=== PATIENT | female | born 1955 | race Caucasian/White ===

== ENCOUNTER 2022-03-18 10:34 | Outpatient (CLI) | payer MEDICARE, BC, SELFPAY ==
[2022-03-18 13:33] LABS: Hematocrit 41.9 % (33.0-51.0); Hemoglobin* 14.4 gm/dL (12.0-16.0); Mean Corpuscular HGB Conc 34 gm/dL (32-36); Mean Corpuscular Hemoglobin 32 pg (26-34); Mean Corpuscular Volume 93 fL (80-100); Platelet Count* 335 K/uL (140-440); Red Blood Count 4.51 m/uL (4.00-5.20); White Blood Count* 7.75 K/uL (4.50-11.00)
[2022-03-18 13:36] LABS: Slide Review Reflex No
[2022-03-18 14:01] LABS: Chloride* 104 mmol/L (96-114); Potassium* 4.8 mmol/L (3.6-5.1); Sodium* 138 mmol/L (135-149)
[2022-03-18 14:04] LABS: Blood Urea Nitrogen* 16 mg/dL (7-30); Carbon Dioxide* 29 mmol/L (20-32); Cholesterol* 274 mg/dL (90-199); Creatinine* 0.9 mg/dL (0.5-1.5); Estimated Glomerular Filt Rate 71 ml/min
[2022-03-18 14:05] LABS: Calcium* 9.7 mg/dL (8.4-10.6); Glucose* 91 mg/dL (60-115); HDL Cholesterol* 59 mg/dL (>=50); LDL Cholesterol Calculated 159 mg/dL (<100); Triglycerides* 281 mg/dL (40-149)
== END 2022-03-18 10:35 | disposition home or self-care (01) ==
PROVIDERS: PCP Family Medicine; Visit Provider Family Medicine
DX: Z00.00 Encounter for general adult medical examination without abnormal findings (principal); E03.9 Hypothyroidism, unspecified; E78.5 Hyperlipidemia, unspecified; I10 Essential (primary) hypertension
CPT/HCPCS: 80048; 80061; 84443; 85027

== ENCOUNTER 2022-04-21 08:49 | Outpatient (CLI) | payer MEDICARE, BC, SELFPAY ==
--- OUTSIDE RECORDS SUMMARY | 2022-04-21 08:52 | XMS_ITS | Clinical Summary ---
:1955 Author Organization [facility] [place] [address] Care Team Providers Name Role Phone Shalom Hargrove MD Primary Care Provider [phone] Allergies Active Allergy Reactions Severity Noted Date Comments Formaldehyde Rash 10/18/2018 Medications Medication Sig Dispensed Refills Start Date End Date Status aspirin chewable 81 Take 1 tablet by 0 03/26/2016 Active mg chewable mouth once daily tabletIndications: with a meal. Routine general medical examination at a health care facility calcium carbonate Take 1 tablet by 0 03/26/2016 Active (CALTRATE) 600 mg mouth 2 times (1,500 mg) daily with meals. tabletIndications: Routine general medical examination at a health care facility [id number] 1 APPLICATION 0 02/04/2017 Active xamethasone TOPICALLY TID TO (MAXITROL) ophthalmic EYELID WOUNDS FOR ointment 1 WEEK ergocalciferol Take 1 capsule by 12 capsule 1 03/31/2017 Active (VITAMIN D2) 50,000 mouth once weekly. unit capsuleIndications: Vitamin D deficiency Active Problems Problem Noted Date Melanoma 04/17/2016 Personal history of colonic polyps 03/19/2016 Vitamin D deficiency 02/24/2012 Tobacco abuse 06/12/2009 Hyperlipidemia 12/10/2007 Immunizations Name Administration Dates Next Due Hepatitis A (Adult) 12/18/1999, 05/15/1999 Hepatitis B (Adult) 12/18/1999, 07/01/1999, 05/15/1999 Influenza, IIV3 (Age >=3 years) 05/25/2009 Td (Age >=7 Years) 05/15/1999 Tdap 06/12/2009 Zoster (Zostavax-ZVL, live) 02/03/2017 Family History Medical History Relation Name Comments Hypertension Brother 2 Heart Disease Father [place] age 54 Hypertension Father Stroke Father Cancer Mother melanoma Cancer-breast Paternal Grandmother PGGM Cancer Sister 2 basal/squamous c ells Cancer Sister 3 melanoma Cancer-colon Sister 3 benign tumor rem dwight Relation Name Status Comments Brother 1 Alive Brother 2 Father (Age 53) Mother Alive Paternal Grandmother Sister 1 Alive Sister 2 Alive Sister 3 Alive Social History Tobacco Use Types Packs/Day Years Used Date Current Every Day Smoker Cigarettes 0.5 Soham t: 02/16/2016 Smokeless Tobacco: Never Used Tobacco Cessation: Counseling Given: Yes Alcohol Use Standard Drinks/Week Comments Yes 0 (1 standard drink = 0.6 oz pure alcoho l) occasional Alcohol Habits Answer Date Recorded How often do you have a drink containing alcohol? Not asked How many drinks containing alcohol do you have on a typical Not asked day when you are drinking? How often do you have six or more drinks on one occasion? No t asked Comment: occasional 05/15/2009 Sex Assigned at Date Recorded Not on file Obstetrics History Para Term AB IAB SAB Ectopic Multiple Living Live Births 4 3 3 1 1 3 4 Date Outcome GA Total Labor/2nd/3rd Weight Sex Delivery Anes PTL Kim A 1 A5 Name Clin Labor 08/24 Term 40w 3.09 kg M Vag Phoebe /1972 0d (6 lb ng 13 oz) Comments: Adopted Out 10/11/1981 SAB 8w0d [facility] Delivery Location: [facility] 11/12/1982 Term 3.32 kg (7 lb 5 oz) F Vag-Forceps Living 8 9 [facility] Delivery Location: [facility] 01/29/1985 Term 40w0d 3.12 kg (6 lb 14 oz) Vag Li ving 8 9 [facility] Delivery Location: [facility] Last Filed Vital Signs Vital Sign Reading Time Taken Comments Blood Pressure 117/70 10/18/2018 4:00 AM UNDERWRITING DIRECTOR Pulse 70 10/18/2018 4:00 AM UNDERWRITING DIRECTOR Temperature 37.1 ??C (98.7 ??F) 10/18/2018 1:10 AM UNDERWRITING DIRECTOR Respiratory Rate 18 10/18/2018 12:11 AM UNDERWRITING DIRECTOR Oxygen Saturation 96% 10/18/2018 4:00 AM UNDERWRITING DIRECTOR Inhaled Oxygen Concentration - - Weight 72 kg (158 lb 11.2 oz) 10/18/2018 12:11 AM UNDERWRITING DIRECTOR Height 160 cm (5' 3) 10/18/2018 12:11 AM UNDERWRITING DIRECTOR Body Mass Index 28.11 10/18/2018 12:11 AM UNDERWRITING DIRECTOR Plan of Treatment Health Maintenance Due Date Last Done Comments COVID-19 vaccine series (#1) 06/27/1956 Hepatitis C screening for age 0512/25/1974 18-79 Pap test for age 21-65 02/15/2015 02/16/2012 (Completed out side of [facility]), 04/21/2006, 08/20/2004 Depression screening for age 12+ 02/04/2017 02/05/2016 Zoster (shingles) series for age 0803/31/2017 02/03/2017 50+ (2 of 3) BMI (ht and wt on same day) for 02/03/2018 02/03/2017, 0808/2015 age 18+ Mammogram for age 45-75 02/10/2018 02/10/2017, 02/08/2016, 02/16/2012, Additional history exists Tetanus booster 06/12/2019 06/12/2009, 05/15/1999 Colonoscopy through age 75 03/13/2021 03/13/2016, 6, 01/20/2008, Additional history exists DEXA/DXA scan for age 65+ 2021 02/19/2012 Pneumococcal series for age 65+ (1 2021 - PCV) Lipids for age 45-75 02/03/2022 02/03/2017, 02/05/2016, 02/19/2012, Additional history exists Influenza for age 65+ 04/24/2022 05/25/2009 Tdap Completed 06/12/2009 Results Not on filefrom Last 3 Months Insurance Payer Benefit Plan / Subscriber ID Effective Dates Phone Addre ss Type Group MEDICARE PART B MEDICARE PART B [id number] 2021-[facility] ATTN: CLAIMS - HB USE ONLY HB ONLY t [address] [place] [address] MEDICARE PART A MEDICARE PART A [id number] 2021-[employer] ATTN: CLAIMS - HB USE ONLY HB ONLY t [address] [place] [address] MEDICARE - PB MEDICARE PB [id number] 2021-[employer] ATTN : CLAIMS USE ONLY ONLY t [address] [place] [address] [place] [id number] 2021-Stan [address] [address] [place], [place] [id number] Care Teams Representative Government Relations Relationship Specialty Start Date End Date Shalom Hargrove MD PCP - General 04/21/061999 [place] [address]
--- NOTE | 2022-04-21 09:15 | CRLHL7_ITS ---
For Patients: As a result of the Century Cures Act, medical imaging exams and procedure reports are released immediately into your electronic medical record. You may view this report before your referring provider. If you have questions, please contact your health care provider. INDICATION: TIAs. TECHNIQUE: Brain MRI with contrast. The following sequences were obtained: Sagittal T1 weighted sequence. DWI and ADC mapping sequences. Axial FLAIR, GRE T2* and JT T2 weighted sequences. T1 weighted post-contrast sequences. Magnetic Resonance Angiography of the head and neck with and without contrast. The following sequences were obtained: 3D Time of Flight MRA sequence of the intracranial circulation. 3D Time of Flight and gadolinium bolus MRA sequences the neck with all measurements are based on NASCET criteria. Maximum Intensity Reconstructions are provided. 20 cc of Dotarem gadolinium based contrast agent was used. COMPARISON: None. FINDINGS: MRI Head: No acute infarction. No acute or chronic intracranial blood products. No mass or pathologic intracranial enhancement. Few small foci of FLAIR hyperintensity within the supratentorial white matter, typical for chronic microvascular ischemic change. No hydrocephalus or extra-axial collections. The pituitary gland, parasellar structures and optic chiasm are normal. 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 The orbital contents are normal. No calvarial or skull base marrow signal abnormality. No obstructive sinus disease. No extracranial soft tissue findings. MRA Head: No proximal large vessel occlusion. The anterior cerebral arteries are patent. Hypoplastic right A1 segment. The middle cerebral arteries are patent. The posterior cerebral arteries are patent. The intradural vertebral arteries and basilar artery are patent. The intracranial internal carotid arteries are patent. No aneurysm or high flow vascular malformation. MRA Neck: There is a 3 vessel configuration of the aortic arch. The brachiocephalic artery is patent. The proximal subclavian arteries are patent. The common carotid arteries are patent. The internal carotid arteries are patent. The cervical vertebral arteries are patent. No abnormal dilatation of the major cervical arteries. IMPRESSION: MRI Head: 1. No acute infarction or other acute intracranial pathology. 2. No mass or pathologic intracranial enhancement. 3. 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 4. Scattered chronic microvascular ischemic changes within the supratentorial white matter. MRA Head: 1. No proximal large vessel occlusion or flow-limiting stenosis involving the intracranial arterial circulation. MRA Neck: 1. No flow-limiting stenosis or evidence of dissection involving the cervical arterial circulation. Dictated by Ga Barrientos MD @ 04/21/2022 11:15:54 AM (Electronically Signed)
--- NOTE | 2022-04-21 10:15 | CRLHL7_ITS ---
For Patients: As a result of the Cures Act, medical imaging exams and procedure reports are released immediately into your electronic medical record. You may view this report before your referring provider. If you have questions, please contact your health care provider. Dictation for this exam included within the brain MRI report from the same date. Dictated by Ga Barrientos MD @ 04/21/2022 11:17:14 AM (Electronically Signed)
--- NOTE | 2022-04-21 10:15 | CRLHL7_ITS ---
For Patients: As a result of the Cures Act, medical imaging exams and procedure reports are released immediately into your electronic medical record. You may view this report before your referring provider. If you have questions, please contact your health care provider. Dictation for this exam included within the brain MRI report from the same date. Dictated by Ga Barrientos MD @ 04/21/2022 11:16:21 AM (Electronically Signed)
== END 2022-04-21 08:50 | disposition home or self-care (01) ==
LOC: MRI 08:50
PROVIDERS: PCP Family Medicine; Visit Provider Family Medicine
DX: G45.9 Transient cerebral ischemic attack, unspecified (principal); I63.9 Cerebral infarction, unspecified
CPT/HCPCS: 70544; 70549; 70553; A9575

== ENCOUNTER 2022-05-19 12:31 | Outpatient (CLI) | payer MEDICARE, BC, SELFPAY ==
--- OUTSIDE RECORDS SUMMARY | 2022-05-19 12:33 | XMS_ITS | Clinical Summary ---
:1955 Author Organization [employer] [facility] [employer] [place] [address] Care Team Providers Name Role Phone Shalom Hargrove MD Primary Care Provider [phone] Allergies Active Allergy Reactions Severity Noted [...] medical examination at a health care facility [id number] 1 APPLICATION 0 02/04/2017 Active xamethasone TOPICALLY [...] Comments Hypertension Brother 2 Heart Disease Father [place] age 54 Hypertension Father Stroke Father Cancer [...] oz) Comments: Adopted Out 10/11/1980 SAB 8w0d [facility] Delivery Location: [facility] 11/12/1982 Term 3.32 kg (7 lb 5 oz) F Vag-Forceps Living 8 9 [facility] [place] Delivery Location: [facility] 01/29/1985 Term 40w0d 3.12 kg (6 lb 14 oz) Vag Li ving 8 9 [facility] Delivery Location: [facility] Last Filed Vital Signs Vital Sign Reading Time Taken Comments Blood Pressure 117/70 10/18/2018 4:00 AM AUTOMATIC MOUNTER Pulse 70 10/18/2018 4:00 AM AUTOMATIC MOUNTER Temperature 37.1 ??C (98.7 ??F) 10/18/2018 1:10 AM AUTOMATIC MOUNTER Respiratory Rate 18 10/18/2018 12:11 AM AUTOMATIC MOUNTER Oxygen Saturation 96% 10/18/2018 4:00 AM AUTOMATIC MOUNTER Inhaled Oxygen Concentration - - Weight 72 kg (158 lb 11.2 oz) 10/18/2018 12:11 AM AUTOMATIC MOUNTER Height 160 cm (5' 3) 10/18/2018 12:11 AM AUTOMATIC MOUNTER Body Mass Index 28.11 10/18/2018 12:11 AM AUTOMATIC MOUNTER Plan of Treatment Health Maintenance Due Date [...] Group MEDICARE PART B MEDICARE PART B [id number] 2021-[employer] ATTN: CLAIMS - HB USE ONLY HB ONLY t [address] [place] [address] MEDICARE PART A MEDICARE PART A [id number] 2021-[employer] ATTN: CLAIMS - HB USE ONLY HB ONLY t [address] [place] [address] MEDICARE - PB MEDICARE PB [id number] 2021-Presste[employer]i ATTN : CLAIMS USE ONLY ONLY t [address] [place] [address] [place] [id number] 2021-Stan [address] [address] [place], [place] [id number] Care Teams Production Operations Engineer Relationship Specialty Start Date End Date Shalom Hargrove MD PCP - General 04/21/061999 [place] [address]
--- NOTE | 2022-05-19 13:00 | CRLHL7_ITS ---
For Patients: As a result of the Century Cures Act, medical imaging exams and procedure reports are released immediately into your electronic medical record. You may view this report before your referring provider. If you have questions, please contact your health care provider. BILATERAL SCREENING MAMMOGRAM WITH COMPUTER-AIDED DETECTION AND TOMOSYNTHESIS TECHNIQUE: CC and MLO views were obtained. These mammographic images have been obtained using full-field digital technique. These mammographic images were interpreted with the benefit of computer-aided detection. Breast Tomosynthesis was used in this interpretation. COMPARISON FILM: 11/02/20 [facility], 12/21/18 [facility], 02/10/17 [facility]. FINDINGS: There are scattered areas of fibroglandular density IMPRESSION: There is no radiographic evidence for malignancy. ASSESSMENT: BI-RADS Category 1: Negative RECOMMENDATION: Routine screening mammogram in 1 year. A lay language report of this examination will be provided to the patient. Shalom Keith M.D. Diagnostic Radiologist [email or web address] NATALIIA/Dictated by: Shalom Keith MD @ 05/20/2022 8:58:00 AM (Electronically Signed)
== END 2022-05-19 12:32 | disposition home or self-care (01) ==
PROVIDERS: Visit Provider Family Medicine
DX: Z12.31 Encounter for screening mammogram for malignant neoplasm of breast (principal)
CPT/HCPCS: 77063; 77067

== ENCOUNTER 2023-02-09 11:11 | Outpatient (CLI) | payer MEDICARE, BC, SELFPAY ==
--- NOTE | 2023-02-09 13:11 | W.ANESCHARGE ---
Anesthesia Charges Start Date/Time Anesthesia Start Date: 02/09/23 Anesthesia Start Time: 12:05 Stop Date/Time Anesthesia Stop Date: 02/09/23 Anesthesia Stop Time: 13:09
== END 2023-02-09 11:12 | disposition home or self-care (01) ==
LOC: OP CLINIC 11:12
PROVIDERS: PCP Family Medicine; Visit Provider Surgery
DX: Z12.11 Encounter for screening for malignant neoplasm of colon (principal); K63.5 Polyp of colon; K57.30 Diverticulosis of large intestine without perforation or abscess without bleeding; Z86.010 Personal history of colon polyps
CPT/HCPCS: 00811; 45385; 88305; J2704

== ENCOUNTER 2023-03-19 10:32 | Outpatient (CLI) | payer MEDICARE, BC, SELFPAY | END 2023-03-19 10:33 | disposition home or self-care (01) | PROVIDERS: PCP Family Medicine; Visit Provider Family Medicine | DX: I10 Essential (primary) hypertension (principal) | CPT/HCPCS: 85025 ==

== ENCOUNTER 2024-05-09 15:34 | Outpatient (CLI) | payer MEDICARE, BC, SELFPAY ==
--- OUTSIDE RECORDS SUMMARY | 2024-05-09 15:37 | XMS_ITS | Clinical Summary ---
Author Organization [facility] Address [address] [place] [address] Care Team Providers Care Workforce Consultant Name Role Phone Unassigned, Provider Primary Care Provider Unava ilable Source Comments You are receiving this document as you are listed as the primary care provider,follow-up provider, or the patient has been referred to you for consultation.This is in compliance with the Medicare andTr[facility] Regional Medical Centercaid EHR Incentive Program,which states Providers who transition their patient to another setting of careor provider of care or refers their patient to another provider of care shouldprovide summary care record for each transition of care or referral. [employer] Allergies Active Allergy Reactions Criticality Noted Date Comments Formaldehyde 06/02/2017 Medications Medication Sig Dispensed Refills Start Date End Date Status calcium carbonate/vitamin D (AKA OYSCO 500+D) 500-125 MG-UNIT tabletIndications:Rig ht shoulder pain, unspecified chronicity Take 1,000 mg by mouth two times a day. Active cephalexin (KEFLEX) 500 MG capsule TAKE ONE CAPSULE BY MOUTH ONCE DAILY FOR 10 DAYS WITH WATER NON-DAIRY FOOD AND SUPPLEMENT DAILY WITH PROBIOTIC 02/14/2021 Active levothyroxine (SYNTHROID) 75 MCG tablet Take 75 mcg by mouth daily. 12/21/2020 Active lisinopril-hydrochlor othiazide (PRINZIDE) 10-12.5 MG tablet Take 1 Tablet by mouth daily. 12/21/2020 Active mupirocin (BACTROBAN) 2 % ointment TO EXCISION SITE 1-2X DAILY UNTIL WELL HEALED 02/14/2021 Active Active Problems Problem Noted Date Diagnosed Date Osteoarthritis of right glenohumeral joint 06/02 Social History Tobacco Use Types Packs/Day Years Used Date Smoking Tobacco: Every Day Cigarettes Smokeless Tobacco: Never Alcohol Use Standard Drinks/Week Comments Yes 0 (1 standard drink = 0.6 oz pur e alcohol) Sex and Gender Information Value Date Recorded Sex Assigned at Not on file Gender Identity Not on file Sexual Orientation Not on file Last Filed Vital Signs Vital Sign Reading Time Taken Comments Blood Pressure - - Pulse - - Temperature - - Respiratory Rate - - Oxygen Saturation - - Inhaled Oxygen Concentration - - Weight 66.7 kg (147 lb) 06/02/2017 11:31 AM CDT Height 162.6 cm (5' 4) 06/02/2017 11:31 AM CDT Body Mass Index 25.23 06/02/2017 11:31 AM CDT Plan of Treatment Health Maintenance Due Date Last Done Comments Colon Cancer Screening Plan Due 1955 Hep C Screening (Preventive Services) 1955 Mammogram 1955 Pneumococcal 65+ Yrs (1 - PCV) 1962 Adult Preventive Visit 1974 Cholesterol 2001 Zoster/Shingles (3 of 3) 11/20/2020 09/25/2020, 01/22 COVID-19 Vaccine ( season) 2024 11/13/2020 Influenza (#1) 2024 06/20/2020, 04/24, 06/14/2019, Additional history exists DTaP/Tdap/Td (4 - Tdap) 09/25/2030 09/25/19 21, 06/12/2009, 06/12/2009 RSV (1 - 1-dose 75+ series) 12/26/2031 HepA Aged Out No longer eligi ble based on patient's age to complete this topic HepB Aged Out No longer eligi ble based on patient's age to complete this topic Hib Aged Out No longer eligi ble based on patient's age to complete this topic IPV (Polio) Aged Out No longer eligi ble based on patient's age to complete this topic MCV4 Aged Out No longer eligi ble based on patient's age to complete this topic Care Teams Workforce Consultant Relationship Specialty Start Date End Date Unassigned, Provider [address] [facility] [address] PCP - General 06/15/00
--- OUTSIDE RECORDS SUMMARY | 2024-05-09 15:38 | XMS_ITS | Clinical Summary ---
Author Organization [facility] Address [place], [place] [address] Care Team Providers Care Veterinary Anatomist Name Role Phone Shalom Hargrove MD Primary Care Provider + Allergies Active Allergy Reactions Criticality Noted Date Comments Formaldehyde Rash 10/18/2018 Medications Medication Sig Dispensed Refills Start Date End Date Status aspirin chewable 81 mg chewable tabletIndications:R outine general medical examination at a health care facility Take 1 tablet by mouth once daily with a meal. 0 03/26/2016 Active calcium carbonate (CALTRATE) 600 mg (1,500 mg) tabletIndications:R outine general medical examination at a health care facility Take 1 tablet by mouth 2 times daily with meals. 0 03/26/2016 Active neomycin-polymyxin- dexamethasone (MAXITROL) ophthalmic ointment 1 APPLICATION TOPICALLY TID TO EYELID WOUNDS FOR 1 WEEK 0 02/04/2017 Active ergocalciferol (VITAMIN D2) 50,000 unit capsuleIndications: Vitamin D deficiency Take 1 capsule by mouth once weekly. 12 capsule 1 03/31/2017 Active Active Problems Problem Noted Date Diagnosed Date Melanoma 04/17/2016 Personal history of colonic polyps 03/19/2016 Vitamin D deficiency 02/24/2012 Tobacco abuse 06/12/2009 Hyperlipidemia 12/10/2007 Immunizations Name Administration Dates Next Due Hepatitis A (Adult) 12/18/1999,05/15/1999 Hepatitis B (Adult) 12/18/1999,07/01/1999,1998 Influenza, IIV3 (Age >=3 years) 05/25/2009 Td (Age >=7 Years) 05/15/1999 Tdap 06/12/2009 Zoster (Zostavax-ZVL, live) 02/03/2017 Family History Medical History Relation Name Comments Hypertension Brother 2 Heart Disease Father [place] age 54 Hypertension Father Stroke Father Cancer Mother melanoma Cancer-breast Paternal Grandmother PGGM Cancer Sister 2 basal/squamous cells Cancer Sister 3 melanoma Cancer-colon Sister 3 benign tumor re moved Relation Name Status Comments Brother 1 Alive Brother 2 Father (Age 53) Mother Alive Paternal Grandmother Sister 1 Alive Sister 2 Alive Sister 3 Alive Social History Tobacco Use Types Packs/Day Years Used Date Smoking Tobacco: Every Day Cigarettes Last attempted to quit: 02/16/2016 Smokeless Tobacco: Never Tobacco Cessation:Counseling Given: Yes Alcohol Use Standard Drinks/Week Comments Yes 0 (1 standard drink = 0.6 oz pur e alcohol) occasional Sex and Gender Information Value Date Recorded Sex Assigned at Not on file Gender Identity Not on file Sexual Orientation Not on file Obstetrics History Para Term AB IAB SAB Ectopic Multiple Livin g Live Births 4 3 3 1 1 3 4 Date Outcome GA Total Labor Labor/2nd/3rd Weight Sex Type Anes PTL Kim A1 A5 Name Clin 973 Term 40w 0d 3.09 kg (6 lb 13 oz) M Vag Livin g Comments:Adopted Out 982 SAB 8w0 d Decea sed [place] Delivery Location:[facility] 983 Term 3.32 kg (7 lb 5 oz) F Vag-F orcep s Livin g 8 9 [place] Delivery Location:[facility] 985 Term 40w 0d 3.12 kg (6 lb 14 oz) Vag Livin g 8 9 [place] an Delivery Location:[facility] Last Filed Vital Signs Vital Sign Reading Time Taken Comments Blood Pressure 117/70 10/18/2018 4:00 AM ELECTRICAL PROSPECTING OBSERVER Pulse 70 10/18/2018 4:00 AM ELECTRICAL PROSPECTING OBSERVER Temperature 37.1 ??C (98.7 ??F) 10/18/2018 1:10 AM CS T Respiratory Rate 18 10/18/2018 12:11 AM ELECTRICAL PROSPECTING OBSERVER Oxygen Saturation 96% 10/18/2018 4:00 AM ELECTRICAL PROSPECTING OBSERVER Inhaled Oxygen Concentration - - Weight 72 kg (158 lb 11.2 oz) 10/18/2018 12:11 A M ELECTRICAL PROSPECTING OBSERVER Height 160 cm (5' 3) 10/18/2018 12:11 AM ELECTRICAL PROSPECTING OBSERVER Body Mass Index 28.11 10/18/2018 12:11 AM ELECTRICAL PROSPECTING OBSERVER Plan of Treatment Health Maintenance Due Date Last Done Comments Hepatitis C screening for ag e 18-79 1974 Depression screening for age 12+ 02/04/2017 02/05/20 16 Zoster (shingles) series for age 50+ (2 of 3) 03/31/2017 02/03/2017 BMI (ht and wt on same day) for age 18+ 02/03/2018 02/03/2017, 03/24/2016 Mammogram for age 45-75 02/10/2018 02/11/20 17, 02/08/2016, 02/16/2012, Additional history exists Tetanus booster 06/12/2019 06/12/2009, 05/15/1999 Colonoscopy through age 75 03/13/202103/13, 03/13/2016, 01/20/2008, Additional history exists DEXA/DXA scan for age 65+ 2021 02/19/2012 Pneumococcal series for age 65+ (1 of 1 - PCV) 2021 Lipids for age 45-75 02/03/2022 02/03/2017, 02/05/2016, 02/19/2012, Additional history exists COVID-19 vaccine series ( - 2022- season) 2024 Influenza for age 65+ 04/24/2024 05/25/2009 Tdap Completed 06/12/2009 Procedures Procedure Name Priority Date/Time Associated Diagnosis Comments XR MAMMO BILAT SCREENING Routine 02/10/2017 8:14 AM CDT Visit for screening mammogram LIPID PANEL W REFLEX MEASURED LDL Routine 02/03/2017 9:56 AM CDT Routine general medical examination at a health care facility COLONOSCOPY SCREENING Routine 03/13/2016 Special screening for malignant neoplasms, colon XR DXA BONE DENSITY 2 SITES AXIAL Routine 02/19/2012 9:15 AM CDT Screening for osteoporosis from Last 3 Months or Most Recently Relevant to Health Maintenance Results * XR MAMMO BILAT SCREENING (02/10/2017 8:14 AM CDT) Anatomical Region Laterality Modality BREASTS, Breast Left, Breast Right Bilateral Mammography Impressions 02/10/2017 9:17 AM CDT ??There is no radiographic evidence for malignancy. ??Recommend annual mammograms. A lay language report of this examination will be provided to the patient. MAMMOGRAM ASSESSMENT: ??ACR 1 Negative Narrative 02/10/2017 9:17 AM CDT XR MAMMO BILAT SCREENING [[id number]] CLINICAL HISTORY: ??This is an asymptomatic 61 y.o. patient. INDICATION FOR EXAM: Mammogram Screening. TECHNIQUE: CC & MLO views were obtained. ??This digital study was evaluated with the assistance of Computer-Aided Detection. COMPARISON FILM: Yes 02/08/16 [facility] FINDINGS: ??Mammographically, the breast tissue has scattered fibroglandular densities. ??There are no dominant masses, suspicious micro calcifications or areas of architectural distortion. Shalom Hargrove MD MAMMO * (ABNORMAL) LIPID PANEL W REFLEX MEASURED LDL (02/03/2017 9:56 AM CDT) CHOLESTEROL,TOTAL 247(H) 100 - 199 mg/dL 02/03/2017 10:45 AM CDT [facility] TRIGLYCERIDES 169(H) <150 mg/dL 02/03/2017 10:45 AM CDT [facility] HDL CHOLESTEROL 50 >40 mg/dL 7 10:45 AM CDT [facility] NON-HDL CHOLESTEROL 197(H) <145 mg/dl 02/03/2017 10:45 AM CDT [facility] CHOL/HDL RATIO 4.94(H) <4.50 02/03/2017 10:45 AM CDT [facility] LDL CHOLESTEROL 163(H) <=130 mg/dL 02/03/2017 10:45 AM CDT [facility] PATIENT STATUS NOT GIVEN 02/03/2017 10:45 AM CDT [facility] Blood BLOOD SPECIMEN / Unknown Venipuncture / Unknown 02/03/2017 9:56 AM CDT 02/03/2017 9:57 AM CDT Shalom Hargrove MD CHEMISTRY [address] [address] * COLONOSCOPY SCREENING (03/13/2016) Shalom Hargrove MD GI PROCEDURE ORD * XR DEXA BONE DENSITY 2 SITES (02/19/2012 9:15 AM CDT) Anatomical Region Laterality Modality Spine, HIPS, HIPL, HIPR Bone Den sitometry Narrative 02/21/2012 9:55 AM CDT Please see scanned document for results of this study. Procedure Note Briana Stringer MD - 02/21/2012 Please see scanned document for results of this study. Shalom Hargrove MD DEXA from Last 3 Months or Most Recently Relevant to Health Maintenance Insurance Payer Benefit Plan / Group Subscriber ID Effective Dates Phone Address Type MEDICARE PART B - HB USE ONLY MEDICARE PART B HB ONLY [id number] 2021-Presen t ATTN: CLAIMS [address] MEDICARE PART A - HB USE ONLY MEDICARE PART A HB ONLY [id number] 2021-Presen t ATTN: CLAIMS [address] [place] [address] MEDICARE - PB USE ONLY MEDICARE PB ONLY [id number] 2021-Presen t ATTN: CLAIMS [address] [address] [place]OSS [place] BLUE MR PB ONLY [id number] 2021-Presen [place] [address] [address] [place] [address] Care Teams Veterinary Anatomist Relationship Specialty Start Date End Date Shalom Hargrove MD [address] [place] [address] PCP - General 04/21/06
== END 2024-05-09 15:35 | disposition home or self-care (01) ==
PROVIDERS: PCP Family Medicine; Visit Provider Family Medicine
DX: E78.2 Mixed hyperlipidemia (principal); I10 Essential (primary) hypertension; E03.9 Hypothyroidism, unspecified; E55.9 Vitamin D deficiency, unspecified; R53.83 Other fatigue
CPT/HCPCS: 80048; 80061; 84443; 84460; 85025

== ENCOUNTER 2024-05-26 13:37 | Outpatient (CLI) | payer MEDICARE, BC, SELFPAY ==
--- OUTSIDE RECORDS SUMMARY | 2024-05-26 13:39 | XMS_ITS | Clinical Summary ---
Author Organization [facility] Address [place], [place] [address] Care Team Providers Care Sales Representative Business Courses Name Role Phone Shalom Hargrove MD Primary [...] Comments Hypertension Brother 2 Heart Disease Father ID age 54 Hypertension Father Stroke Father Cancer [...] 8w0 d Decea sed [place] Delivery Location:[facility] 983 Term 3.32 kg (7 lb 5 oz) F Vag-F orcep s Livin g 8 9 [place] Delivery Location:[facility] 985 Term 40w 0d 3.12 kg (6 lb 14 oz) Vag Livin g 8 9 [place] an Delivery Location:[facility] Last Filed Vital Signs Vital Sign Reading Time Taken Comments Blood Pressure 117/70 10/18/2018 4:00 AM ROPE SILICA MACHINE OPERATOR Pulse 70 10/18/2018 4:00 AM ROPE SILICA MACHINE OPERATOR Temperature 37.1 ??C (98.7 ??F) 10/18/2018 1:10 AM CS T Respiratory Rate 18 10/18/2018 12:11 AM ROPE SILICA MACHINE OPERATOR Oxygen Saturation 96% 10/18/2018 4:00 AM ROPE SILICA MACHINE OPERATOR Inhaled Oxygen Concentration - - Weight 72 kg (158 lb 11.2 oz) 10/18/2018 12:11 A M ROPE SILICA MACHINE OPERATOR Height 160 cm (5' 3) 10/18/2018 12:11 AM ROPE SILICA MACHINE OPERATOR Body Mass Index 28.11 10/18/2018 12:11 AM ROPE SILICA MACHINE OPERATOR Plan of Treatment Health Maintenance Due Date [...] history exists COVID-19 vaccine series ( - 2023- season) 2024 Influenza for age 65+ 04/24/2024 [...] 9:17 AM CDT XR MAMMO BILAT SCREENING [[id number]] CLINICAL HISTORY: ??This is an asymptomatic 61 [...] - 199 mg/dL 02/03/2017 10:45 AM CDT [facility] TRIGLYCERIDES 169(H) <150 mg/dL 02/03/2017 10:45 AM CDT [facility] HDL CHOLESTEROL 50 >40 mg/dL 7 10:45 AM CDT [facility] NON-HDL CHOLESTEROL 197(H) <145 mg/dl 02/03/2017 10:45 AM CDT [facility] CHOL/HDL RATIO 4.94(H) <4.50 02/03/2017 10:45 AM CDT [facility] LDL CHOLESTEROL 163(H) <=130 mg/dL 02/03/2017 10:45 AM CDT [facility] PATIENT STATUS NOT GIVEN 02/03/2017 10:45 AM CDT [facility] Blood BLOOD SPECIMEN / Unknown Venipuncture / Unknown 02/03/2017 9:56 AM CDT 02/03/2017 9:57 AM CDT Shalom Hargrove MD CHEMISTRY [address] [address] * COLONOSCOPY SCREENING (03/13/2016) Shalom Hargrove MD [...] USE ONLY MEDICARE PART B HB ONLY [id number] 2021-Presen t ATTN: CLAIMS [address] MEDICARE PART A - HB USE ONLY MEDICARE PART A HB ONLY [id number] 2021-Presen t ATTN: CLAIMS [address] [place] [address] MEDICARE - PB USE ONLY MEDICARE PB ONLY [id number] 2021-Presen t ATTN: CLAIMS [address] [address] [place]OSS MR BLUE [place]OSS [place] BLUE MR PB ONLY [id number] 2021-Presen t [address] [address] [place] [address] Care Teams Sales Representative Business Courses Relationship Specialty Start Date End Date Shalom Hargrove MD [address] [place] [address] PCP - General 04/21/06
--- OUTSIDE RECORDS SUMMARY | 2024-05-26 13:39 | XMS_ITS | Clinical Summary ---
Author Organization [facility] Address [address] [place] [address] Care Team Providers Care Balance Bridge Assembler Name Role Phone Unassigned, Provider Primary Care Provider Unava ilable Source Comments You are receiving this document as you are listed as the primary care provider,follow-up provider, or the patient has been referred to you for consultation.This is in compliance with the Medicare and[facility] Campuscaid EHR Incentive Program,which states Providers who transition their patient to another setting of careor provider of care or refers their patient to another provider of care shouldprovide summary care record for each transition of care or referral. Footbalistic Allergies Active Allergy Reactions Criticality Noted Date [...] age to complete this topic Care Teams Balance Bridge Assembler Relationship Specialty Start Date End Date Unassigned, Provider [address] [facility] [place] [address] PCP - General 06/15/00
--- NOTE | 2024-05-26 14:30 | CRLHL7_ITS ---
For Patients: As a result of the Century Cures Act, medical imaging exams and procedure reports are released immediately into your electronic medical record. You may view this report before your referring provider. If you have questions, please contact your health care provider. DXA BONE MINERAL DENSITY STUDY Current height (in): 62.0. Weight (lb): 135.0. Menopause age: 48. Ethnicity: White. 1. Have you had a previous hip or vertebral fracture? No. 2. Have you had any fractures during your adult life which did not result from significant trauma (e.g., auto accident)? No. 3. Did either of your parents have a hip fracture? No. 4. Do you smoke? Yes. 5. Have you ever taken Glucocorticoids? No. 6. Do you have rheumatoid arthritis? No. 7. Do you have secondary osteoporosis? No. 8. Do you drink 3 or more alcoholic drinks per day? No. 9. Are you being treated for osteoporosis? No. 10. Have you ever taken any of the following medications: Actonel, Evista, Fosamax, Miacalcin, Reclast, Boniva, Forteo, HRT (i.e. estrogen/hormone therapy), Protelos, Prolia, Vitamin D, Calcium, other ??? please specify. ANSWER: Yes, Calcium, Vitamin D. 11. Do you have any of the following medical conditions: Anorexia or bulimia, asthma or emphysema, end stage renal disease, hyperparathyroidism, any seizure disorders, cancer, inflammatory bowel diseases, hysterectomy, other ??? please specify. ANSWER: Yes, hyperparathyroidism, cancer, hysterectomy. 12. What was your maximum height (inches)? 63. 13. Do you perform weight bearing exercise regularly? No. 14. Do you regularly consume dairy products? Yes. 15. Do you drink caffeinated beverages? Yes. If female: 16. At what age did your period start? 16. 17. Are you premenopausal? No. 18. How many full term pregnancies have you had? 4. 19. Have you ever missed your period for more than 6 months in a row (not including or menopause)? No. TECHNIQUE: Bone mineral density study was performed using the [employer]. FINDINGS: The results of the study expressed as bone mineral density (BMD) are as follows: Lumbar spine L1 to L4: BMD: 0.777 g/cm2. T-score: -2.5. Z-score: -0.5. Neck Left: BMD: 0.595 g/cm2. T-score: -2.3 . Z-score:-0.6. Right: BMD: 0.604 g/cm2. T-score: -2.2 . Z-score: -0.6. Total Left: BMD: 0.769 g/cm2. T-score: -1.4 . Z-score: -0.1. Right: BMD: 0.762 g/cm2. T-score: -1.5 . Z-score: -0.1. IMPRESSION: Osteoporosis. Shalom Keith M.D. Diagnostic Radiologist [email or web address] DSM/romie JR/Dictated by: Shalom Keith MD @ 05/30/2024 9:20:00 AM (Electronically Signed)
== END 2024-05-26 13:38 | disposition home or self-care (01) ==
LOC: RAD 13:37
PROVIDERS: PCP Family Medicine; Visit Provider Family Medicine
DX: N95.1 Menopausal and female climacteric states (principal); M81.0 Age-related osteoporosis without current pathological fracture; Z78.0 Asymptomatic menopausal state
CPT/HCPCS: 77080

== ENCOUNTER 2024-07-12 13:25 | Outpatient (CLI) | payer MEDICARE, BC, SELFPAY ==
--- OUTSIDE RECORDS SUMMARY | 2024-07-12 13:27 | XMS_ITS | Clinical Summary ---
Author Organization [facility] Address [address] Care Team Providers Care Epic Manager Name Role Phone Shalom Hargrove MD Primary [...] Comments Hypertension Brother 2 Heart Disease Father [place] age 54 Hypertension Father Stroke Father Cancer [...] Out 982 SAB 8w0 d Decea sed [place] Delivery Location:[facility] 983 Term 3.32 kg (7 lb 5 oz) F Vag-F orcep s Livin g 8 9 [place] Delivery Location:[facility] 985 Term 40w 0d 3.12 kg (6 lb 14 oz) Vag Livin g 8 9 Heidem an Delivery Location:[facility] Last Filed Vital Signs Vital Sign Reading Time Taken Comments Blood Pressure 117/70 10/18/2018 4:00 AM UPFITTER Pulse 70 10/18/2018 4:00 AM UPFITTER Temperature 37.1 C (98.7 F) 10/18/2018 1:10 AM UPFITTER Respiratory Rate 18 10/18/2018 12:11 AM UPFITTER Oxygen Saturation 96% 10/18/2018 4:00 AM UPFITTER Inhaled Oxygen Concentration - - Weight 72 kg (158 lb 11.2 oz) 10/18/2018 12:11 A M UPFITTER Height 160 cm (5' 3) 10/18/2018 12:11 AM UPFITTER Body Mass Index 28.11 10/18/2018 12:11 AM UPFITTER Plan of Treatment Health Maintenance Due Date [...] Bilateral Mammography Impressions 02/10/2017 9:17 AM CDT There is no radiographic evidence for malignancy. Recommend annual mammograms. A lay language report of this examination will be provided to the patient. MAMMOGRAM ASSESSMENT: ACR 1 Negative Narrative 02/10/2017 9:17 AM CDT XR MAMMO BILAT SCREENING [[id number]] CLINICAL HISTORY: This is an asymptomatic 61 y.o. patient. INDICATION FOR EXAM: Mammogram Screening. TECHNIQUE: CC & MLO views were obtained. This digital study was evaluated with the assistance of Computer-Aided Detection. COMPARISON FILM: Yes 02/08/16 [facility] FINDINGS: Mammographically, the breast tissue has scattered fibroglandular densities. There are no dominant masses, suspicious micro calcifications or areas of architectural distortion. Shalom Hargrove MD MAMMO * (ABNORMAL) LIPID PANEL W REFLEX MEASURED LDL (02/03/2017 9:56 AM CDT) CHOLESTEROL,TOTAL 247(H) 100 - 199 mg/dL 02/03/2017 10:45 AM CDT [facility] TRIGLYCERIDES 169(H) <150 mg/dL 02/03/2017 10:45 AM CDT [facility] HDL CHOLESTEROL 50 >40 mg/dL 7 10:45 AM CDT [facility] NON-HDL CHOLESTEROL 197(H) <145 mg/dl 02/03/2017 10:45 AM CDT [facility] CHOL/HDL RATIO 4.94(H) <4.50 02/03/2017 10:45 AM CDT [facility] LDL CHOLESTEROL 163(H) <=130 mg/dL 02/03/2017 10:45 AM CDT [facility] PATIENT STATUS NOT GIVEN 02/03/2017 10:45 AM CDT [facility] Blood BLOOD SPECIMEN / Unknown Venipuncture / Unknown 02/03/2017 9:56 AM CDT 02/03/2017 9:57 AM CDT Shalom Hargrove MD CHEMISTRY [address] [address] * COLONOSCOPY SCREENING (03/13/2016) Shalom Hargrove MD [...] USE ONLY MEDICARE PART B HB ONLY [id number] 2021-Presen t ATTN: CLAIMS [address] [place] [address] MEDICARE PART A - HB USE ONLY MEDICARE PART A HB ONLY [id number] 2021-Presen t ATTN: CLAIMS [address] [place] [address] MEDICARE - PB USE ONLY MEDICARE PB ONLY [id number] 2021-Presen t ATTN: CLAIMS [address] [place] [address] BLUE CROSS MR BLUE CROSS [place] BLUE MR PB ONLY [id number] 2021-Presen t [address] [address] [place] [address] Care Teams Epic Manager Relationship Specialty Start Date End Date Shalom Hargrove MD [address] [place] [address] PCP - General 04/21/06
--- OUTSIDE RECORDS SUMMARY | 2024-07-12 13:27 | XMS_ITS | Clinical Summary ---
Author Organization [facility] Address [address] [place] [address] Care Team Providers Care Photographer Name Role Phone Unassigned, Provider Primary Care Provider Unava ilable Source Comments You are receiving this document as you are listed as the primary care provider,follow-up provider, or the patient has been referred to you for consultation.This is in compliance with the Medicare and[facility] EHR Incentive Program,which states Providers who transition their patient to another setting of careor provider of care or refers their patient to another provider of care shouldprovide summary care record for each transition of care or referral. Profitably Allergies Active Allergy Reactions Criticality Noted Date [...] on patient's age to complete this topic RSV Aged Out No longer eligi ble based on patient's age to complete this topic MCV4 Aged Out No longer eligi ble based on patient's age to complete this topic Care Teams Photographer Relationship Specialty Start Date End Date Unassigned, Provider [address] [place] [address] PCP - General 06/15/00
--- NOTE | 2024-07-12 14:00 | CRLHL7_ITS ---
For Patients: As a result of the Cures Act, medical imaging exams and procedure reports are released immediately into your electronic medical record. You may view this report before your referring provider. If you have questions, please contact your health care provider. BILATERAL SCREENING MAMMOGRAM WITH COMPUTER-AIDED DETECTION AND TOMOSYNTHESIS TECHNIQUE: CC and MLO views were obtained. These mammographic images have been obtained using full-field digital technique. These mammographic images were interpreted with the benefit of computer-aided detection. Breast Tomosynthesis was used in this interpretation. COMPARISON FILM: 05/19/22, 11/02/20, 12/21/18. FINDINGS: There are scattered areas of fibroglandular density IMPRESSION: There is no radiographic evidence for malignancy. ASSESSMENT: BI-RADS Category 1: Negative RECOMMENDATION: Routine screening mammogram in 1 year. A lay language report of this examination will be provided to the patient. Shalom Keith M.D. Diagnostic Radiologist [email or web address] Transcribed: 2:26 p.donald soliz/Dictated by: Shalom Keith MD @ 07/14/2024 11:04:00 AM (Electronically Signed)
== END 2024-07-12 13:26 | disposition home or self-care (01) ==
LOC: MAMMO 13:26
PROVIDERS: PCP Family Medicine; Visit Provider Family Medicine
DX: Z12.31 Encounter for screening mammogram for malignant neoplasm of breast (principal)
CPT/HCPCS: 77063; 77067

== ENCOUNTER 2025-03-08 09:02 | Outpatient (CLI) | payer MEDICARE, BC, SELFPAY ==
--- NOTE | 2025-03-08 09:15 | CRLHL7_ITS ---
For Patients: As a result of the Century Cures Act, medical imaging exams and procedure reports are released immediately into your electronic medical record. You may view this report before your referring provider. If you have questions, please contact your health care provider. INDICATION: Low back pain. TECHNIQUE: Multisequence multiplanar MRI of the lumbar spine without the use of intravenous contrast. COMPARISON: Correlate with lumbar spine radiographs dated 11/23/2024. FINDINGS: Grade 1 5 mm anterolisthesis at L4-L5. Vertebral body heights are maintained. No T1 hypointense infiltrative lesion is identified. There is mild multilevel disc desiccation and height loss. The conus medullaris terminates normally at the L2 level. The prevertebral soft tissues are unremarkable. T12-L1, L1-L2, and L2-L3: No significant spinal canal or neural foraminal stenosis. L3-L4: Shallow symmetric disc bulge. No significant spinal canal or neural foraminal stenosis. L4-L5: Advanced facet joint arthrosis with anterolisthesis and disc bulge/uncovering. Small bilateral facet joint effusions. Moderate spinal canal stenosis and mild-moderate bilateral neural foraminal narrowing. L5-S1: Symmetric disc bulge. Moderate facet joint arthrosis. No significant spinal canal stenosis. Moderate bilateral neural foraminal narrowing. IMPRESSION: 1. Advanced facet joint arthrosis at L4-L5 with small bilateral facet joint effusions and grade 1 anterolisthesis. 2. At L4-L5, moderate spinal canal stenosis and mild-moderate bilateral neural foraminal narrowing. 3. At L5-S1, moderate bilateral neural foraminal narrowing. Dictated by Stanislav Voss MD @ 03/08/2025 3:08:08 PM (Electronically Signed)
== END 2025-03-08 09:03 | disposition home or self-care (01) ==
LOC: MRI 09:02
PROVIDERS: PCP Family Medicine; Visit Provider Family Medicine
DX: M54.50 Low back pain, unspecified (principal); M51.369 Other intervertebral disc degeneration, lumbar region without mention of lumbar back pain or lower extremity pain; M47.896 Other spondylosis, lumbar region
CPT/HCPCS: 72148

== ENCOUNTER 2025-05-11 09:49 | Outpatient (CLI) | payer MEDICARE, BC, SELFPAY | END 2025-05-11 09:50 | disposition home or self-care (01) | PROVIDERS: PCP Family Medicine; Visit Provider Family Medicine | DX: E03.9 Hypothyroidism, unspecified (principal); E78.2 Mixed hyperlipidemia; I10 Essential (primary) hypertension | CPT/HCPCS: 80048; 80061; 84443; 84460; 85025 ==

== ENCOUNTER 2025-05-17 09:32 | Outpatient (CLI) | payer MEDICARE, BC, SELFPAY | END 2025-05-17 09:33 | disposition home or self-care (01) | LOC: INJ CL 09:33 | PROVIDERS: PCP Family Medicine; Visit Provider Nurse Anesthetist, Certified Registered | DX: M47.816 Spondylosis without myelopathy or radiculopathy, lumbar region (principal) | CPT/HCPCS: 64491; 64492; 64493; 64494; 64495; Q9966 ==

== ENCOUNTER 2025-05-19 13:34 | Outpatient (CLI) | payer MEDICARE, BC, SELFPAY ==
--- NOTE | 2025-05-19 14:00 | CRLHL7_ITS ---
For Patients: As a result of the Cures Act, medical imaging exams and procedure reports are released immediately into your electronic medical record. You may view this report before your referring provider. If you have questions, please contact your health care provider. INDICATION: Lung cancer screening. History of smoking. High risk patient with greater than 50 pack-year smoking history. TECHNIQUE: Low-dose lung cancer screening non-contrast CT chest. Dose reduction techniques were used. COMPARISON: None. FINDINGS: NODULES: Calcified left perihilar nodule measures 5.9 millimeters, incidental. LUNGS AND PLEURA: Emphysema, moderately severe. MEDIASTINUM: Visualized thyroid is within normal limits. No enlarged intrathoracic lymph nodes. CORONARY ARTERY CALCIFICATION: Moderate. LIMITED UPPER ABDOMEN: Unremarkable. MUSCULOSKELETAL: No fracture. IMPRESSION: Negative for lung cancer screening purposes. LUNG-RADS CATEGORY: 2: Benign. RADIOLOGIST RECOMMENDATION: Continue annual screening, if eligible, with low-dose CT chest in 12 months. Please note that all CT scans at this facility use dose modulation, iterative reconstruction, and/or weight-based dosing when appropriate to reduce radiation dose to as low as reasonably achievable. Dictated by Shalom Keith MD @ 05/22/2025 10:36:03 AM (Electronically Signed)
== END 2025-05-19 13:35 | disposition home or self-care (01) ==
LOC: CT 13:34
PROVIDERS: PCP Family Medicine; Visit Provider Family Medicine
DX: Z12.2 Encounter for screening for malignant neoplasm of respiratory organs (principal); F17.210 Nicotine dependence, cigarettes, uncomplicated
CPT/HCPCS: 71271

== ENCOUNTER 2025-06-07 06:39 | Outpatient (CLI) | payer MEDICARE, BC, SELFPAY | END 2025-06-07 06:40 | disposition home or self-care (01) | LOC: RAD 06:40 | PROVIDERS: PCP Family Medicine; Visit Provider Nurse Anesthetist, Certified Registered | DX: M47.816 Spondylosis without myelopathy or radiculopathy, lumbar region (principal) | CPT/HCPCS: 64493; 64494; 64495 ==

== ENCOUNTER 2025-07-12 06:35 | Outpatient (CLI) | payer MEDICARE, BC, SELFPAY | END 2025-07-12 06:36 | disposition home or self-care (01) | LOC: INJ CL 06:36 | PROVIDERS: PCP Family Medicine; Visit Provider Nurse Anesthetist, Certified Registered | DX: M47.816 Spondylosis without myelopathy or radiculopathy, lumbar region (principal) | CPT/HCPCS: 64635; 64636; J0665; J1885; J2250; J3010 ==

== ENCOUNTER 2025-07-18 16:51 | Outpatient (CLI) | payer MEDICARE, BC, SELFPAY ==
--- NOTE | 2025-07-18 17:20 | CRLHL7_ITS ---
For Patients: As a result of the Century Cures Act, medical imaging exams and procedure reports are released immediately into your electronic medical record. You may view this report before your referring provider. If you have questions, please contact your health care provider. INDICATION: BILATERAL SCREENING MAMMOGRAM, ASYMPTOMATIAC 69 Y/O FEMALE COMPARISON: 07/12/24, , 04/21/22 TECHNIQUE: Digital mammogram in CC and MLO projections including computer-aided detection (CAD) and tomosynthesis. BREAST COMPOSITION: There are scattered areas of fibroglandular density. FINDINGS: No suspicious findings. ASSESSMENT: BI-RADS 1 Negative RECOMMENDATION: Annual screening mammogram. A lay language report of this examination will be provided to the patient. Dictated by: Tereza Caldera MD @ 07/19/2025 20:56:17 (Electronically Signed)
== END 2025-07-18 16:52 | disposition home or self-care (01) ==
LOC: MAMMO 16:51
PROVIDERS: PCP Family Medicine; Visit Provider Family Medicine
DX: Z12.31 Encounter for screening mammogram for malignant neoplasm of breast (principal)
CPT/HCPCS: 77063; 77067